=== PATIENT | female | born 1970 | race Caucasian/White ===

== ENCOUNTER 2021-05-02 11:54 | Inpatient (IN) | payer OTHER ==
[~2021-05-02] VITALS: Ht 172.7 cm; Wt 147.2 kg
[~2021-05-02 11:54] MED LIST: AUGMENTIN250 MG PO; BACLOFEN 10MG T10 MG PO; BACTRIM DS TAB1 EACH PO; HYDROCHLOROTHIA25 M1 PO; K-DUR20 MEQ PO; METRONIDAZOLE500 MG PO; NAPROXEN500 MG PO; PRAVACHOL20 MG PO; PREDNISONE 20MG20 MG PO; PRILOSEC20 MG PO; PRINIVIL20 MG PO; SAXENDA SC; ZYRTEC10 MG PO
[2021-05-02 12:36] LABS: BASOPHIL 0.1 % (0-2); EOSINOPHIL 0 % (0-5); HCT 44.9 % (37.0-47.0); HGB 14.1 g/dl (12.5-16.0); LYMPHOCYTE 6.9 % (15-48); MCH 28.1 pg (25.0-31.0); MCHC 31.4 g/dL (32.0-36.0); MCV 89.4 fL (78.0-100.0); MONOCYTE 2.8 % (0-12); NEUTROPHIL 89.6 % (41-80); NRBC 0; PLT 140 K/uL (150-400); RBC 5.02 M/uL (4.20-5.40); RDW 13.6 % (11.5-14.0); WBC 7.9 K/uL (4.0-10.5)
[2021-05-02 13:44] LABS: PRO-BNP 320 pg/mL (<125)
[2021-05-02 13:50] LABS: IRON % SATURATION 5.2 %SAT (20-50)
[2021-05-02 13:50] LABS: ALBUMIN 2.3 g/dL (3.4-5.0); BILIRUBIN - TOTAL 0.3 mg/dL (0.2-1.0); BUN/CREAT RATIO (CALC) 18.2 RATIO; C-REACTIVE PROTEIN 12.3 mg/dL (<=0.90); CREATININE 1.32 mg/dL (0.51-0.95); GLOBULIN (CALCULATION) 3.8 g/dL; MAGNESIUM 1.9 mg/dL (1.8-2.4); POTASSIUM 3.3 mmol/L (3.5-5.1); TOTAL PROTEIN 6.1 g/dL (6.4-8.2)
[2021-05-02] MEDS ORDERED: PROTONIX 40MG T40 MG PO (21:55)
[2021-05-03 00:16] LABS: BILIRUBIN NEGATIVE (NEGATIVE); BLOOD NEGATIVE Ery/uL (NEGATIVE); CLARITY CLEAR (CLEAR); COLOR YELLOW (YELLOW); GLUCOSE (U) NORMAL (NORMAL); LEUKOCYTES NEGATIVE Leu/uL (NEGATIVE); NITRITE NEGATIVE (NEGATIVE); PROTEIN 1+ mg/dL (NEGATIVE); UROBILINOGEN 0.2 mg/dL (0.2-1.0)
[2021-05-03 00:23] LABS: BACTERIA TRACE; URINARY WBC RARE
[2021-05-03 07:00] LABS: BASOPHIL 0.2 % (0-2); EOSINOPHIL 0 % (0-5); MCH 28.3 pg (25.0-31.0); MCV 91.5 fL (78.0-100.0); MONOCYTE 5.4 % (0-12); MPV 10.1 fL (6.0-9.5); NEUTROPHIL 73.6 % (41-80); NRBC 0; PLT 122 K/uL (150-400); RBC 4.59 M/uL (4.20-5.40); RDW 13.7 % (11.5-14.0); WBC 4.4 K/uL (4.0-10.5)
[2021-05-03 07:11] LABS: LYMPHOCYTE 19.9 % (15-48)
[2021-05-03 07:48] LABS: BUN/CREAT RATIO (CALC) 25.2 RATIO; CREATININE 1.11 mg/dL (0.51-0.95); POTASSIUM 4.4 mmol/L (3.5-5.1)
--- NOTE | 2021-05-03 12:26 | NUR ---
ANESTHESIA REQUESTED PER MD FOR POTENTIAL DIFFICULT INTUBATION. ADULT PAROLE OFFICER TO FLOOR. PROPOFOL, VERSED, SUCC, ETOMIDATE PUSHED BY ADULT PAROLE OFFICER AT 1224. COMPLETED INTUBATION AT 1226. AMBU BAG USED UNTIL O2 SAT 100%. NO DISTRESS NOTED. VSS AT TIME OF INTUBATION ONCE HYPEROXYGENATED. CHEST XRAY COMPLETED. ADDITIONAL IV SITES OBTAINED. OG TUBE AND ABBOTT CATHETER PLACED AT 1255.
--- NOTE | 2021-05-04 06:32 | NUR ---
MD ORDERED CVP MONITORING FOR THIS PT. UNABLE TO PERFORM CVP DUE TO UNAVAILABILTY OF EQUIPMENT OR TRAINING TO DO SO. ER,RN
[2021-05-04 09:13] LABS: BASOPHIL 0 % (0-2); EOSINOPHIL 0 % (0-5); HCT 40.4 % (37.0-47.0); HGB 12.8 g/dl (12.5-16.0); LYMPHOCYTE 11.9 % (15-48); MCH 28.8 pg (25.0-31.0); MCHC 31.7 g/dL (32.0-36.0); MONOCYTE 6.1 % (0-12); MPV 9.4 fL (6.0-9.5); NEUTROPHIL 81.1 % (41-80); NRBC 0; PLT 163 K/uL (150-400); RBC 4.44 M/uL (4.20-5.40); RDW 13.9 % (11.5-14.0); RETICULOCYTE COUNT 0.6 % (1.0-2.0)
[2021-05-04 09:18] LABS: WBC 7.8 K/uL (4.0-10.5)
[2021-05-04 09:31] LABS: IRON % SATURATION 21.1 %SAT (20-50)
[2021-05-04 09:58] LABS: ALBUMIN 2.3 g/dL (3.4-5.0); BILIRUBIN - TOTAL 0.4 mg/dL (0.2-1.0); BUN/CREAT RATIO (CALC) 35.8 RATIO; CREATININE 0.95 mg/dL (0.51-0.95); GLOBULIN (CALCULATION) 3.9 g/dL; PHOSPHORUS 2.6 mg/dL (2.6-4.7); POTASSIUM 3.9 mmol/L (3.5-5.1); TOTAL PROTEIN 6.2 g/dL (6.4-8.2)
[2021-05-04 10:01] LABS: MAGNESIUM 2.6 mg/dL (1.8-2.4)
--- NOTE | 2021-05-05 04:37 | NUR ---
AROUND 0300 GOT A CALL FROM BRYAN AT THE [facility]. THEY FOUND A BED AT [facility] ICU BED 7. REPORT WAS CALLED AROUND 0320 TO KEON LEONE. EMS WAS CALLED AND ARRIVED AROUND 0340 TO TRANSPORT PT. ER DOC AND TELE DOC WERE BOTH ASKED BY PRIMARY RN IF PT SHOULD GO BY GROUND OR AIR AND BOTH DECIDED GROUND WOULD BE FINE. EMS HAS BEEN IN PT. FOR FOR THE LAST HOUR TRANSFERING PT. TO THEIR STRETCHER AND VENT. PT. WILL BE LEAVING FLOOR SHORTLY. LAST SET OF VITALS WAS 129/65 PER A LINE, PULSE 81, RESP 24, TEMP 96.2 AXILLARY. PT. STABLE AT THE TIME OF DEPARTURE AT 0448. KEON LINTON
[2021-05-05 05:08] LABS: BASOPHIL 0.1 % (0-2); EOSINOPHIL 0 % (0-5); HCT 38.3 % (37.0-47.0); HGB 11.8 g/dl (12.5-16.0); LYMPHOCYTE 9.1 % (15-48); MCH 28.1 pg (25.0-31.0); MCHC 30.8 g/dL (32.0-36.0); MCV 91.2 fL (78.0-100.0); MONOCYTE 5.2 % (0-12); MPV 9.3 fL (6.0-9.5); NRBC 0; PLT 206 K/uL (150-400); RDW 13.6 % (11.5-14.0); WBC 7.3 K/uL (4.0-10.5)
[2021-05-05 05:19] LABS: NEUTROPHIL 84.9 % (41-80)
[2021-05-05 05:40] LABS: BILIRUBIN - TOTAL 0.2 mg/dL (0.2-1.0); CREATININE 0.9 mg/dL (0.51-0.95); GLOBULIN (CALCULATION) 2.8 g/dL; MAGNESIUM 2.2 mg/dL (1.8-2.4); POTASSIUM 4.2 mmol/L (3.5-5.1); TOTAL PROTEIN 4.8 g/dL (6.4-8.2)
[2021-05-06 05:16] LABS: BASOPHIL 0.1 % (0-2); EOSINOPHIL 0 % (0-5); HCT 37.4 % (37.0-47.0); HGB 11.6 g/dl (12.5-16.0); LYMPHOCYTE 3.7 % (15-48); MCH 28.2 pg (25.0-31.0); MONOCYTE 4.4 % (0-12); MPV 9.4 fL (6.0-9.5); NRBC 0; PLT 207 K/uL (150-400); RBC 4.11 M/uL (4.20-5.40); RDW 13.5 % (11.5-14.0); WBC 10.5 K/uL (4.0-10.5)
[2021-05-06 05:19] LABS: NEUTROPHIL 91.3 % (41-80)
[2021-05-06 05:41] LABS: BILIRUBIN - TOTAL 0.3 mg/dL (0.2-1.0); BUN/CREAT RATIO (CALC) 30.3 RATIO; C-REACTIVE PROTEIN 1.7 mg/dL (<=0.90); CREATININE 0.89 mg/dL (0.51-0.95); GLOBULIN (CALCULATION) 2.8 g/dL; POTASSIUM 4.6 mmol/L (3.5-5.1); TOTAL PROTEIN 4.8 g/dL (6.4-8.2)
--- NOTE | 2021-05-06 20:05 | NUR ---
1020 PT SAT UP IN THE BED AND WAS PULLING AT HER ET TUBE, SAT DROPPED TO 80% CALLED OUT TO CALL DR OAKLYE AND RESP. WE STARTED TO BAG HER TO GET SATS BACK UP, WE HAD TO DO THIS ABOUT 6 TIMES. INCREASED FIO2 TO 100% ON THE VENTILATOR, INCREASED HER PEEP 20.SHE WAS STARTED HER ON A VECURONIUM GTT AT 0.8MCG/KG/MIN, WHICH HELPED HER RELAX AND WE WAS ABLE TO GET HER VENTILATOR SETTING BACK DOWN AT 1323 SETTING WERE SIMV RATE 20,TIDAL 550, FIO2 60%, PEEP12, PRESSURE SUPPORT 10
[2021-05-07 08:16] LABS: BASOPHIL 0.1 % (0-2); EOSINOPHIL 0 % (0-5); HGB 11.3 g/dl (12.5-16.0); LYMPHOCYTE 2.3 % (15-48); MCH 28.3 pg (25.0-31.0); MCHC 31.4 g/dL (32.0-36.0); MONOCYTE 3.7 % (0-12); MPV 9.5 fL (6.0-9.5); NEUTROPHIL 92.6 % (41-80); NRBC 0; PLT 204 K/uL (150-400); RDW 13.3 % (11.5-14.0)
[2021-05-07 08:17] LABS: WBC 10.3 K/uL (4.0-10.5)
[2021-05-07 08:33] LABS: ALBUMIN 1.9 g/dL (3.4-5.0); BILIRUBIN - TOTAL 0.4 mg/dL (0.2-1.0); BUN/CREAT RATIO (CALC) 37.3 RATIO; CREATININE 0.67 mg/dL (0.51-0.95); GLOBULIN (CALCULATION) 3.4 g/dL; POTASSIUM 4.8 mmol/L (3.5-5.1); TOTAL PROTEIN 5.3 g/dL (6.4-8.2)
--- NOTE | 2021-05-07 20:25 | NUR ---
05/05/21 0437 NOTE PUT IN ON WRONG PT. MRS. FLOR DID NOT GET TRANSFERRED WILL CORRECT NOTE ON PT. WHO DID GET TRANSFERRED. ER,RN
[2021-05-08 04:41] LABS: BASOPHIL 0 % (0-2); EOSINOPHIL 0 % (0-5); HCT 35.1 % (37.0-47.0); LYMPHOCYTE 2.7 % (15-48); MCH 28.5 pg (25.0-31.0); MCHC 31.3 g/dL (32.0-36.0); MCV 90.9 fL (78.0-100.0); MONOCYTE 3.8 % (0-12); MPV 10.3 fL (6.0-9.5); NEUTROPHIL 92.4 % (41-80); NRBC 0; PLT 220 K/uL (150-400); RBC 3.86 M/uL (4.20-5.40); RDW 13.7 % (11.5-14.0); WBC 8.2 K/uL (4.0-10.5)
[2021-05-08 05:02] LABS: BUN/CREAT RATIO (CALC) 42.9 RATIO; CREATININE 0.63 mg/dL (0.51-0.95); POTASSIUM 5.5 mmol/L (3.5-5.1)
[2021-05-09 05:23] LABS: BASOPHIL 0 % (0-2); EOSINOPHIL 0.1 % (0-5); HCT 35.2 % (37.0-47.0); LYMPHOCYTE 2.3 % (15-48); MCH 28.4 pg (25.0-31.0); MCHC 31.3 g/dL (32.0-36.0); MONOCYTE 3.6 % (0-12); MPV 10.1 fL (6.0-9.5); NRBC 0.3; PLT 290 K/uL (150-400); RBC 3.87 M/uL (4.20-5.40); RDW 13.7 % (11.5-14.0); WBC 7.5 K/uL (4.0-10.5)
[2021-05-09 05:24] LABS: NEUTROPHIL 92.8 % (41-80)
[2021-05-09 05:38] LABS: BUN/CREAT RATIO (CALC) 46.4 RATIO; CREATININE 0.69 mg/dL (0.51-0.95); POTASSIUM 5.7 mmol/L (3.5-5.1)
--- NOTE | 2021-05-09 10:53 | NUR ---
PT STATUS UPDATE- PT INTUBATED & SEDATED. PT LOCALIZES NOXIOUS STIMULI. PT IN RESTRAINTS, NEW ORDER PLACED @ 0830. PT VS 107/53 (71), HR 46 SINUS HUNTER, RR 20, O2 100%, ABP 126/64 (84). PT ON [id number] & BILAT EXTREMITIES ELEVATED.
--- NOTE | 2021-05-09 13:38 | NUR ---
VENTILATOR SETTINGS CHANGED AC/PC RATE 20, FIO2 75%,PEEP 12, PRESSURE SUPPORT 28. BY RT YI
--- NOTE | 2021-05-09 13:53 | NUR ---
Nutrition Follow UP: Pt continues sedated/intubated with continuous TF of Jevity 1.2. Rate per documentation is 60ml/hr, providing 1728 kcal, 79 g protein and 1162 ml H2O from formula. Additional protein and kcal provided from proteinex supplement as well. No new n/v/d/c indicated, no new wounds of concern. 1+ and 2+ edema to BLE and BUE per documentation. BS are present, abd is distended. Medications and lab results reviewed 05/09/21. Recommendation: Reduce TF rate to goal of 45ml/hr and continue proteinex ONS. Continue FW flushes per MD discretion. ~Eula Garcia, MS, RDN, LD
[2021-05-09 14:37] LABS: BUN/CREAT RATIO (CALC) 45.5 RATIO; CREATININE 0.77 mg/dL (0.51-0.95)
[2021-05-10 05:32] LABS: BASOPHIL 0.1 % (0-2); EOSINOPHIL 0.2 % (0-5); HCT 35.9 % (37.0-47.0); HGB 11.2 g/dl (12.5-16.0); LYMPHOCYTE 2.1 % (15-48); MCH 28.5 pg (25.0-31.0); MCHC 31.2 g/dL (32.0-36.0); MCV 91.3 fL (78.0-100.0); MONOCYTE 3.7 % (0-12); MPV 10.4 fL (6.0-9.5); NRBC 0; PLT 344 K/uL (150-400); RBC 3.93 M/uL (4.20-5.40); RDW 13.8 % (11.5-14.0); WBC 8.9 K/uL (4.0-10.5)
[2021-05-10 05:35] LABS: NEUTROPHIL 92.9 % (41-80)
[2021-05-10 05:44] LABS: BILIRUBIN - TOTAL 0.3 mg/dL (0.2-1.0); BUN/CREAT RATIO (CALC) 58.1 RATIO; CREATININE 0.62 mg/dL (0.51-0.95); GLOBULIN (CALCULATION) 2.9 g/dL; POTASSIUM 5.3 mmol/L (3.5-5.1); TOTAL PROTEIN 4.9 g/dL (6.4-8.2)
[2021-05-10 15:23] LABS: BUN/CREAT RATIO (CALC) 58.5 RATIO; CREATININE 0.65 mg/dL (0.51-0.95); POTASSIUM 4.6 mmol/L (3.5-5.1)
--- NOTE | 2021-05-10 16:21 | NUR ---
SEDATION VACATION STARTED ON PT PER MD ORDER. INITIAL ASSESSMENT WITH FENTANYL 25 ML/HR, VERSED 10 ML/HR 1100- FENTANYL DECREASED TO 20 ML/HR VERSED DECREASED TO 8 ML/HR PT DID NOT FOLLOW COMMANDS 1130- FENTANYL DECREASED TO 17.5 ML/HR VERSED DECREASED TO 7 ML/HR PT DID NOT FOLLOW COMMANDS 1300- FENTANYL DECREASED TO 15 ML/HR VERSED DECREASED TO 6 ML/HR PT WILL OPEN EYES TO NOXIOUS STIMULI AND VOICE, WILL NOT PHYSICAL LABORATORY ASSISTANT HANDS.
[2021-05-11 04:32] LABS: BASOPHIL 0.1 % (0-2); EOSINOPHIL 0.1 % (0-5); HCT 35.7 % (37.0-47.0); HGB 11.2 g/dl (12.5-16.0); LYMPHOCYTE 1.8 % (15-48); MCH 28.3 pg (25.0-31.0); MCHC 31.4 g/dL (32.0-36.0); MCV 90.2 fL (78.0-100.0); MONOCYTE 4.7 % (0-12); MPV 10.4 fL (6.0-9.5); NRBC 0; PLT 360 K/uL (150-400); RBC 3.96 M/uL (4.20-5.40); RDW 13.9 % (11.5-14.0); WBC 10.1 K/uL (4.0-10.5)
[2021-05-11 04:33] LABS: NEUTROPHIL 92.3 % (41-80)
[2021-05-11 05:03] LABS: ALBUMIN 1.9 g/dL (3.4-5.0); BILIRUBIN - TOTAL 0.4 mg/dL (0.2-1.0); BUN/CREAT RATIO (CALC) 61.5 RATIO; CREATININE 0.65 mg/dL (0.51-0.95); GLOBULIN (CALCULATION) 3.5 g/dL; POTASSIUM 4.9 mmol/L (3.5-5.1); TOTAL PROTEIN 5.4 g/dL (6.4-8.2)
--- NOTE | 2021-05-11 18:41 | NUR ---
PT WENT ON SEDATION VACATION AT 1200 FENTANYL AND VERSED STOPPED PT WAS ABLE TO FOLLOW COMMANDS BY SQUEEZING HANDS, WIGGLING TOES, AND HAD EYES OPENED. 1212 PT SEDATION WAS RESTARTED VERSED AT 6MG AND FENTANYL AT 150MCG PT WAS HYPERTENSIVE 170-180 SYSTOLIC AND TACHYCARDIC 100-120. 1220 VERSED INCREASED 8MG AND FENTYNAL INCREASED 200MCG PT WAS STILL ALERT, HYPERTENSIVE AND TACHYCARDIC ALSO BEGINNING TO FIGHT AGAINST THE RESTRAINTS VERSED INCREASED TO 10MG AND FENTANYL INCREASED TO 250MCG AT 1242 DR GOULD WAS NOTIFIED STATED HE DID NOT WANT ANY NEW ORDERS AT THIS TIME 1300 PT WAS NORMOTENSIVE AND WITHIN NORMAL LITIMS WITH HER HEART RATE SO VERSED AWAS DECREASED DOWN TO 8MG AND FENTANYL DECREASED DOWN TO 150MCG 1400 FENTANYL INCREASED TO 200MCG 1430 FENTANYL INCREASED TO 250MCG PT APPEARS COMFORTABLE WITH STABLE VITALS
[2021-05-12 03:24] LABS: BASOPHIL 0 % (0-2); EOSINOPHIL 0.1 % (0-5); HCT 34.6 % (37.0-47.0); LYMPHOCYTE 2.4 % (15-48); MCH 28.5 pg (25.0-31.0); MCHC 31.8 g/dL (32.0-36.0); MCV 89.6 fL (78.0-100.0); MONOCYTE 4.2 % (0-12); MPV 10.4 fL (6.0-9.5); NEUTROPHIL 92.4 % (41-80); NRBC 0; PLT 350 K/uL (150-400); RBC 3.86 M/uL (4.20-5.40); RDW 13.9 % (11.5-14.0); WBC 9.3 K/uL (4.0-10.5)
[2021-05-12 03:43] LABS: ALBUMIN 1.9 g/dL (3.4-5.0); BILIRUBIN - TOTAL 0.4 mg/dL (0.2-1.0); BUN/CREAT RATIO (CALC) 66.1 RATIO; CREATININE 0.62 mg/dL (0.51-0.95); GLOBULIN (CALCULATION) 3.3 g/dL; MAGNESIUM 2.3 mg/dL (1.8-2.4); POTASSIUM 4.8 mmol/L (3.5-5.1); TOTAL PROTEIN 5.2 g/dL (6.4-8.2)
--- NOTE | 2021-05-12 12:42 | NUR ---
PT BP 180/108 HR 142, MD AWARE AND ORDERED 10 MG LISINOPRIL.
--- NOTE | 2021-05-12 12:43 | NUR ---
PT CALLED TO LOCATE PT BELONGINGS TOPICK UP. THIS RN FOUND A CROSS NECKLACE, TWO RINGS, A CCELL PHONE, GLASSES AND IMPREGNATOR AND DRIER HELPER ALONG WITH ID AND INSURANCE CARD, PLACE IN PERSONAL BELONGINGS BAG AND LABELED WITH NAME. NOTIFIED .
--- NOTE | 2021-05-12 13:00 | NUR ---
NOTIFIED OF HR 145 AND BP 169/97, ORDERED HYDRALAZINE 10 MG IVP
--- NOTE | 2021-05-12 18:16 | NUR ---
PT WAS HYPERTENSIVE BEGINNING AT 1200 SUSTATINING IN THE 180/190 SYSTOLIC PT WAS GIVEN 10 OF APRESOLINE AND 10 OF LISINOPRIL SEE EMAR FOR EXACT TIMES PT VERSED INCREASED TO 10MG AND FENTANYL INCREASED TO 300MCG PT STAYED HYPERTENSIVE UNTIL 1430 AND PT BLOOD PRESSURE SLOWLY DECLINED 1601 VERSED DECREASED TO 8MG 1643 FENTATNYL DEECREASED TO 250MCG PT BLOOD PRESSURE KEPT SLOWLY DECLINING BUT MAP WAS MAINTING GREATER THAN 65 1730 PT BLOOD PRESURE WAS 90/50 TO 80/40 1740 VERSED DECREASED TO 6MG AND FENTANYL WAS DECREASED TO 150MCG BP REMIANED THE SAME EVEN AFTER ZEROING AND FLUSHING THE A LINE NBP WAS SIMILAR TO URIEL READING DRIPS WERE STOPPED AND DR GOULD WAS NOTIFED LUIS FERNANDO CAME AND ASSESSED PATIENTS STATED THAT NEITH THE VERSED OR FENTANYL WOULD AFFECT THE BLOOD PRESSURE ONE MORE THAN THE OTHER 1814 VERSED WAS STARTED BACK AT 6MG FENTANYL WAS RESTARTED BACK AT 50MCG AND A 250 ML BOLUS OF LR WAS ORDERED 1826 PT VITALS ARE STABLIZING, PT APPEARS COMFORTBALE, WILL CONTINUE TO MONITOR
[2021-05-13 03:37] LABS: BASOPHIL 0.1 % (0-2); HCT 33.6 % (37.0-47.0); HGB 10.4 g/dl (12.5-16.0); LYMPHOCYTE 4.8 % (15-48); MCH 28.4 pg (25.0-31.0); MCV 91.8 fL (78.0-100.0); MONOCYTE 2.5 % (0-12); MPV 10.1 fL (6.0-9.5); NEUTROPHIL 90.8 % (41-80); NRBC 0; PLT 288 K/uL (150-400); RBC 3.66 M/uL (4.20-5.40); RDW 14.4 % (11.5-14.0); WBC 10.4 K/uL (4.0-10.5)
[2021-05-13 03:58] LABS: ALBUMIN 2.2 g/dL (3.4-5.0); BILIRUBIN - TOTAL 0.6 mg/dL (0.2-1.0); BUN/CREAT RATIO (CALC) 55.4 RATIO; CREATININE 0.65 mg/dL (0.51-0.95); MAGNESIUM 2.1 mg/dL (1.8-2.4); PHOSPHORUS 2.2 mg/dL (2.6-4.7); POTASSIUM 4.1 mmol/L (3.5-5.1); TOTAL PROTEIN 5.2 g/dL (6.4-8.2)
[2021-05-13 08:55] LABS: LACTIC ACID 1.4 mmol/L (0.4-1.9)
[2021-05-13 13:42] LABS: BILIRUBIN NEGATIVE (NEGATIVE); BLOOD TRACE-INTACT Ery/uL (NEGATIVE); CLARITY CLEAR (CLEAR); COLOR YELLOW (YELLOW); GLUCOSE (U) NORMAL (NORMAL); LEUKOCYTES NEGATIVE Leu/uL (NEGATIVE); NITRITE NEGATIVE (NEGATIVE); PROTEIN NEGATIVE (NEGATIVE); SPECIFIC GRAVITY 1.015 (1.001-1.030)
[2021-05-13 13:53] LABS: BACTERIA TRACE
[2021-05-14 04:16] LABS: BASOPHIL 0 % (0-2); EOSINOPHIL 1.3 % (0-5); HCT 31.6 % (37.0-47.0); HGB 9.5 g/dl (12.5-16.0); LYMPHOCYTE 3.8 % (15-48); MCH 27.9 pg (25.0-31.0); MCHC 30.1 g/dL (32.0-36.0); MCV 92.9 fL (78.0-100.0); MONOCYTE 2.6 % (0-12); MPV 10.4 fL (6.0-9.5); NEUTROPHIL 91.5 % (41-80); NRBC 0; PLT 269 K/uL (150-400); RDW 14.8 % (11.5-14.0)
[2021-05-14 04:20] LABS: WBC 11.4 K/uL (4.0-10.5)
[2021-05-14 04:35] LABS: ALBUMIN 1.7 g/dL (3.4-5.0); BILIRUBIN - TOTAL 0.6 mg/dL (0.2-1.0); BUN/CREAT RATIO (CALC) 42.6 RATIO; CREATININE 0.61 mg/dL (0.51-0.95); GLOBULIN (CALCULATION) 3.1 g/dL; MAGNESIUM 2.2 mg/dL (1.8-2.4); PHOSPHORUS 2.1 mg/dL (2.6-4.7); POTASSIUM 4.4 mmol/L (3.5-5.1); TOTAL PROTEIN 4.8 g/dL (6.4-8.2)
[2021-05-14 15:40] LABS: RETICULOCYTE COUNT 1.7 % (1.0-2.0)
[2021-05-14 16:20] LABS: FOLIC ACID (SERUM) 5.4 ng/mL (8.6-58.9)
[2021-05-15 04:52] LABS: BASOPHIL 0 % (0-2); EOSINOPHIL 0 % (0-5); HCT 30.9 % (37.0-47.0); HGB 9.4 g/dl (12.5-16.0); LYMPHOCYTE 1.3 % (15-48); MCH 28.7 pg (25.0-31.0); MCHC 30.4 g/dL (32.0-36.0); MCV 94.5 fL (78.0-100.0); MONOCYTE 0.6 % (0-12); MPV 10.8 fL (6.0-9.5); NRBC 0; PLT 211 K/uL (150-400); RBC 3.27 M/uL (4.20-5.40); RDW 14.6 % (11.5-14.0); WBC 8.7 K/uL (4.0-10.5)
[2021-05-15 04:54] LABS: NEUTROPHIL 97.6 % (41-80)
[2021-05-15 06:35] LABS: ALBUMIN 1.6 g/dL (3.4-5.0); BILIRUBIN - TOTAL 0.3 mg/dL (0.2-1.0); BUN/CREAT RATIO (CALC) 38.5 RATIO; CREATININE 0.52 mg/dL (0.51-0.95); GLOBULIN (CALCULATION) 3.8 g/dL; MAGNESIUM 2.3 mg/dL (1.8-2.4); PHOSPHORUS 3.6 mg/dL (2.6-4.7); POTASSIUM 5.4 mmol/L (3.5-5.1); TOTAL PROTEIN 5.4 g/dL (6.4-8.2)
--- NOTE | 2021-05-15 18:23 | NUR ---
1300 PT PRONED, RT AT THE HEAD,WITH 6 STAFF MEMBERS TO TURN, PT TOLERATED WELL
[2021-05-16 03:45] LABS: BASOPHIL 0.1 % (0-2); EOSINOPHIL 0 % (0-5); HCT 37.2 % (37.0-47.0); HGB 11.5 g/dl (12.5-16.0); LYMPHOCYTE 1.5 % (15-48); MCH 28.9 pg (25.0-31.0); MCHC 30.9 g/dL (32.0-36.0); MCV 93.5 fL (78.0-100.0); MONOCYTE 2.5 % (0-12); MPV 10.4 fL (6.0-9.5); NRBC 0; PLT 382 K/uL (150-400); RBC 3.98 M/uL (4.20-5.40); RDW 14.6 % (11.5-14.0)
[2021-05-16 03:46] LABS: NEUTROPHIL 95.2 % (41-80)
[2021-05-16 04:12] LABS: BUN/CREAT RATIO (CALC) 47.3 RATIO; CREATININE 0.55 mg/dL (0.51-0.95); MAGNESIUM 2.3 mg/dL (1.8-2.4); PHOSPHORUS 3.9 mg/dL (2.6-4.7); POTASSIUM 5.1 mmol/L (3.5-5.1)
--- NOTE | 2021-05-16 06:06 | NUR ---
0500 6 NURSING STAFF, RT AND HIGH SCHOOL TUTOR AT BEDSIDE. SUPINATION CHECKLIST READ ALOUD. LINES/TUBES SECURED. DRESSING TO COCCYX APPLIED, CHUCKS AND DRAWSHEET PLACED. TUBE FEEDS HELD. SUPINATION PROTOCOL FOLLOWED. PT TOLERATED WELL. BP-199/119 HR-119 O2-95%, R-28. LINES/TUBES REMAINED SECURED/INTACT. ORAL AND NASAL DRAINAGE NOTED, SUCTIONED WITH ORAL CARE. ETT REMAINED SECURED 25@LIP. FOAM DRESSING REMOVED, SKIN INTACT NO OPEN AREAS NOTED TO PRESSURE POINTS AND BILAT EXT. SMALL PIN SIZED OPEN AREA NOTED TO RT SIDE CORNER OF MOUTH, OPEN BLEEDING AREAS TO INNER MOUTH AND TONGUE. FACIAL, ORBITAL, SCLERA EDEMA, EDEMA NOTED TO LIPS. PERRLA INTACT. PUPILS EQUAL AND REACTIVE
--- NOTE | 2021-05-16 09:48 | NUR ---
Pt continues NPO, intubated and sedated att. Current rate of Jevity 1.2 is 30ml/hr which provides 864 kcal, 39g protein, and 581 ml H2O with additional 600ml with FW flushes. Current rate meets ~67% of daily kcal needs, 28% of protein needs. Recommendation, increase TF rate to meet at least 75% of daily needs, as tolerated/appropriate. Add proteinex supplement BID. Chart reviewed, meds and labs reviewed. 1+ edema to BLE's noted, LBM 05/16. ~Eula Garcia, MS, RDN, LD
[2021-05-17 03:53] LABS: BASOPHIL 0 % (0-2); EOSINOPHIL 0 % (0-5); HCT 36.9 % (37.0-47.0); HGB 11.1 g/dl (12.5-16.0); LYMPHOCYTE 2.4 % (15-48); MCH 28.5 pg (25.0-31.0); MCHC 30.1 g/dL (32.0-36.0); MCV 94.9 fL (78.0-100.0); MONOCYTE 3.7 % (0-12); MPV 10.1 fL (6.0-9.5); NRBC 0; PLT 265 K/uL (150-400); RBC 3.89 M/uL (4.20-5.40); RDW 15.2 % (11.5-14.0)
[2021-05-17 03:54] LABS: WBC 11.5 K/uL (4.0-10.5)
[2021-05-17 04:28] LABS: ALBUMIN 1.9 g/dL (3.4-5.0); BILIRUBIN - TOTAL 0.2 mg/dL (0.2-1.0); BUN/CREAT RATIO (CALC) 66.7 RATIO; C-REACTIVE PROTEIN 4.7 mg/dL (<=0.90); CREATININE 0.51 mg/dL (0.51-0.95); GLOBULIN (CALCULATION) 4.1 g/dL; MAGNESIUM 2.5 mg/dL (1.8-2.4); PHOSPHORUS 3.1 mg/dL (2.6-4.7); POTASSIUM 4.8 mmol/L (3.5-5.1)
[2021-05-18 04:21] LABS: BASOPHIL 0.1 % (0-2); EOSINOPHIL 0.1 % (0-5); HCT 36.3 % (37.0-47.0); HGB 11.1 g/dl (12.5-16.0); LYMPHOCYTE 2.9 % (15-48); MCH 28.3 pg (25.0-31.0); MCHC 30.6 g/dL (32.0-36.0); MCV 92.6 fL (78.0-100.0); MONOCYTE 4.7 % (0-12); MPV 10.4 fL (6.0-9.5); NRBC 0; PLT 293 K/uL (150-400); RBC 3.92 M/uL (4.20-5.40); RDW 14.9 % (11.5-14.0); WBC 13.9 K/uL (4.0-10.5)
[2021-05-18 04:38] LABS: BUN/CREAT RATIO (CALC) 72.5 RATIO; CREATININE 0.51 mg/dL (0.51-0.95); MAGNESIUM 2.4 mg/dL (1.8-2.4); PHOSPHORUS 2.2 mg/dL (2.6-4.7); POTASSIUM 4.5 mmol/L (3.5-5.1)
[2021-05-18 04:47] LABS: NEUTROPHIL 91.6 % (41-80)
--- NOTE | 2021-05-18 18:00 | NUR ---
PATIENT PRONED AT 1800 WITH 4 RN'S, RT AND MD AT BEDSIDE. PRIOR TO PRONING SEDATION TITRATED UP TO A BIS OF 53, PARALYTIC ADDED AND TITRATED FOR 1/4 TOF. HYPERTENSION POST PRONING, MD AWARE, DOES NOT WANT IV LOPRESSOR AT THIS TIME, CONTINUE TO MONITOR. NEW ABRASION NOTED TO LEFT UPPER EYE AND RIGHT THIGH (FROM STAT LOCK REMOVAL).
[2021-05-19 10:01] LABS: BASOPHIL 0.1 % (0-2); EOSINOPHIL 0.3 % (0-5); HCT 35.2 % (37.0-47.0); HGB 10.6 g/dl (12.5-16.0); LYMPHOCYTE 7.1 % (15-48); MCH 28.3 pg (25.0-31.0); MCHC 30.1 g/dL (32.0-36.0); MCV 93.9 fL (78.0-100.0); MONOCYTE 5.7 % (0-12); MPV 10.2 fL (6.0-9.5); NEUTROPHIL 86.1 % (41-80); NRBC 0; PLT 165 K/uL (150-400); RBC 3.75 M/uL (4.20-5.40); RDW 14.8 % (11.5-14.0); WBC 8.7 K/uL (4.0-10.5)
[2021-05-19 10:29] LABS: ALBUMIN 2.1 g/dL (3.4-5.0); BILIRUBIN - TOTAL 0.5 mg/dL (0.2-1.0); BUN/CREAT RATIO (CALC) 73.9 RATIO; CREATININE 0.46 mg/dL (0.51-0.95); MAGNESIUM 2.3 mg/dL (1.8-2.4); POTASSIUM 4.6 mmol/L (3.5-5.1); TOTAL PROTEIN 5.1 g/dL (6.4-8.2)
--- NOTE | 2021-05-19 19:10 | NUR ---
SPOKE WITH NEELA ABOUT POSITIVEW BLOOD CULTURES WITH KLEPSIELLA. DR OAKLEY NOTIFIED. PATIENT IS ON MERROPENUM
--- NOTE | 2021-05-19 19:16 | NUR ---
DRIPS HAVE BEEN TITRATED THROUGHOUT DAY FOR SEDATION. STARTED ON DIPRIVAN, STOPPED PRECIDEX AND VEC.
--- NOTE | 2021-05-20 01:45 | NUR ---
RT CAME UP FOR ROUNDS AND PATIENT HAS HAD A CHANGE IN STATUS. HR IS TACHY IN THE 120s, PATIENTS BLOOD PRESSURE HAS BEEN HIGH AND PEAK PRESSURES HAVE INCREASED ON THE VENT INTO THE 50s WHICH IS NEW FOR HER ALONG WITH AN INCREASED RR IN THE UPPER 30s. SPOKE WITH MELANIE RENNER. PATIENT SWITCHED TO PC, IP 30. FIO2 WAS INCREASED BY RN TO 100% DUE TO PATIENT DESAT. CURRENTLY 100%, PEEP OF 10 AND SAT 91% EXVT AROUND 370s WITH SWITCH TO PC. AWAITING XRAY TO COME UP
[2021-05-20 04:10] LABS: BASOPHIL 0.1 % (0-2); EOSINOPHIL 0.4 % (0-5); HCT 29.4 % (37.0-47.0); HGB 8.9 g/dl (12.5-16.0); LYMPHOCYTE 5.7 % (15-48); MCH 28.4 pg (25.0-31.0); MCHC 30.3 g/dL (32.0-36.0); MCV 93.9 fL (78.0-100.0); MONOCYTE 5.1 % (0-12); NEUTROPHIL 87.7 % (41-80); NRBC 0; PLT 177 K/uL (150-400); RBC 3.13 M/uL (4.20-5.40); WBC 9.2 K/uL (4.0-10.5)
[2021-05-20 04:27] LABS: BUN/CREAT RATIO (CALC) 77.3 RATIO; C-REACTIVE PROTEIN 0.8 mg/dL (<=0.90); CREATININE 0.44 mg/dL (0.51-0.95); MAGNESIUM 2.3 mg/dL (1.8-2.4); PHOSPHORUS 2.3 mg/dL (2.6-4.7); POTASSIUM 4.4 mmol/L (3.5-5.1)
--- NOTE | 2021-05-20 12:44 | NUR ---
RD delivered Proteinex 18 to unit; identified protein amt to be different from previous order and approp. substitute. KEON Temple verbalized understanding of product differences.
--- NOTE | 2021-05-20 13:33 | NUR ---
05/20/21 Patient is on waiting list at [facility] per Dr. Schultz.
--- NOTE | 2021-05-20 20:37 | NUR ---
discussed new EN recommendations with MD Schultz d/t high lipid kcals infusing for sedation. Approval for rate decrease- communicated information to KEON Boyd; assessment f/u in [facility] for review.
[2021-05-21 04:44] LABS: BASOPHIL 0 % (0-2); EOSINOPHIL 0.2 % (0-5); HCT 27.3 % (37.0-47.0); LYMPHOCYTE 4.7 % (15-48); MCH 28.1 pg (25.0-31.0); MCHC 29.3 g/dL (32.0-36.0); MCV 95.8 fL (78.0-100.0); MONOCYTE 4.5 % (0-12); MPV 10.1 fL (6.0-9.5); NEUTROPHIL 89.4 % (41-80); NRBC 0.3; PLT 129 K/uL (150-400); RBC 2.85 M/uL (4.20-5.40); RDW 15.6 % (11.5-14.0); WBC 5.7 K/uL (4.0-10.5)
[2021-05-21 05:03] LABS: ALBUMIN 1.8 g/dL (3.4-5.0); BILIRUBIN - TOTAL 0.3 mg/dL (0.2-1.0); BUN/CREAT RATIO (CALC) 59.2 RATIO; CREATININE 0.49 mg/dL (0.51-0.95); GLOBULIN (CALCULATION) 2.7 g/dL; MAGNESIUM 2.3 mg/dL (1.8-2.4); PHOSPHORUS 2.7 mg/dL (2.6-4.7); POTASSIUM 4.6 mmol/L (3.5-5.1); TOTAL PROTEIN 4.5 g/dL (6.4-8.2)
[2021-05-21 10:16] LABS: LACTIC ACID 1.5 mmol/L (0.4-1.9)
[2021-05-22 05:41] LABS: BASOPHIL 0 % (0-2); EOSINOPHIL 3.3 % (0-5); HGB 8.4 g/dl (12.5-16.0); LYMPHOCYTE 14.6 % (15-48); MCH 28.7 pg (25.0-31.0); MONOCYTE 3.4 % (0-12); MPV 10.2 fL (6.0-9.5); NRBC 0.9; PLT 130 K/uL (150-400); RBC 2.93 M/uL (4.20-5.40); RDW 16.2 % (11.5-14.0)
[2021-05-22 06:01] LABS: ALBUMIN 2.1 g/dL (3.4-5.0); BILIRUBIN - TOTAL 0.3 mg/dL (0.2-1.0); BUN/CREAT RATIO (CALC) 57.8 RATIO; C-REACTIVE PROTEIN 0.6 mg/dL (<=0.90); CREATININE 0.45 mg/dL (0.51-0.95); GLOBULIN (CALCULATION) 2.5 g/dL; MAGNESIUM 2.4 mg/dL (1.8-2.4); PHOSPHORUS 2.7 mg/dL (2.6-4.7); POTASSIUM 4.2 mmol/L (3.5-5.1); TOTAL PROTEIN 4.6 g/dL (6.4-8.2)
[2021-05-22 14:28] LABS: BUN/CREAT RATIO (CALC) 62.5 RATIO; CREATININE 0.4 mg/dL (0.51-0.95); POTASSIUM 4.1 mmol/L (3.5-5.1)
--- NOTE | 2021-05-22 16:53 | NUR ---
1550 SATS DROPPED TO 81%, NOTIFIED LUIS FERNANDO AND RESP KD, KD BAGGED HER TO GET SATS BACK UP TO 92, INCREASED FIO2 90 THEN TO 100%. INCREASED PEEP 20.SATS STILL ONLY HANGING AROUND MID 80s STOPPED SEDATION TO SEE IF THAT WOULD HELP FOR ABOUT 35 MIN, SLOWLY TURNED ON VERSED , FENTANYL, DIPROVAN, BP 183/81 SO DECARESED LEVOPHED DOWN TI 1MCG/3.8ML/HR ORDERS: LASIX 60MG IV AND CHEST XRAY
[2021-05-23 04:22] LABS: BASOPHIL 0.1 % (0-2); EOSINOPHIL 3.2 % (0-5); HCT 30.7 % (37.0-47.0); HGB 8.7 g/dl (12.5-16.0); LYMPHOCYTE 4.5 % (15-48); MCH 28.7 pg (25.0-31.0); MCHC 28.3 g/dL (32.0-36.0); MCV 101.3 fL (78.0-100.0); MONOCYTE 1.7 % (0-12); MPV 10.1 fL (6.0-9.5); NEUTROPHIL 89.6 % (41-80); NRBC 0.8; PLT 126 K/uL (150-400); RBC 3.03 M/uL (4.20-5.40); RDW 16.3 % (11.5-14.0); WBC 13.7 K/uL (4.0-10.5)
[2021-05-23 04:42] LABS: ALBUMIN 1.8 g/dL (3.4-5.0); BILIRUBIN - TOTAL 0.5 mg/dL (0.2-1.0); BUN/CREAT RATIO (CALC) 47.7 RATIO; CREATININE 0.44 mg/dL (0.51-0.95); GLOBULIN (CALCULATION) 3.3 g/dL; TOTAL PROTEIN 5.1 g/dL (6.4-8.2)
[2021-05-23 09:15] LABS: BUN/CREAT RATIO (CALC) 43.9 RATIO; CREATININE 0.41 mg/dL (0.51-0.95); POTASSIUM 3.9 mmol/L (3.5-5.1)
[2021-05-23 16:38] LABS: BUN/CREAT RATIO (CALC) 33.3 RATIO; CREATININE 0.42 mg/dL (0.51-0.95); POTASSIUM 3.5 mmol/L (3.5-5.1)
[2021-05-24 00:57] LABS: CREATININE 0.4 mg/dL (0.51-0.95); POTASSIUM 3.5 mmol/L (3.5-5.1)
[2021-05-24 05:24] LABS: BASOPHIL 0.1 % (0-2); EOSINOPHIL 3.4 % (0-5); HCT 26.5 % (37.0-47.0); HGB 7.7 g/dl (12.5-16.0); LYMPHOCYTE 5.8 % (15-48); MCH 28.8 pg (25.0-31.0); MCHC 29.1 g/dL (32.0-36.0); MCV 99.3 fL (78.0-100.0); MONOCYTE 2.5 % (0-12); MPV 10.3 fL (6.0-9.5); NEUTROPHIL 87.4 % (41-80); NRBC 0.4; PLT 105 K/uL (150-400); RBC 2.67 M/uL (4.20-5.40); WBC 7.9 K/uL (4.0-10.5)
[2021-05-24 05:58] LABS: ALBUMIN 1.4 g/dL (3.4-5.0); ALKALINE PHOSHATASE 69 U/L (46-116); ALT 40 U/L (14-59); AST 25 U/L (15-37); BILIRUBIN - TOTAL 0.4 mg/dL (0.2-1.0); BUN 11 mg/dL (7-18); BUN/CREAT RATIO (CALC) 28.9 RATIO; CHLORIDE 111 mmol/L (98-107); CO2 (BICARBONATE) 36 mmol/L (21-32); CREATININE 0.38 mg/dL (0.51-0.95); GLOBULIN (CALCULATION) 3.4 g/dL; GLUCOSE 133 mg/dL (74-106); POTASSIUM 3.6 mmol/L (3.5-5.1); TOTAL PROTEIN 4.8 g/dL (6.4-8.2)
[2021-05-24 05:59] LABS: C-REACTIVE PROTEIN < 0.20 mg/dL (<=0.90)
[2021-05-24 11:24] LABS: BUN/CREAT RATIO (CALC) 26.8 RATIO; CREATININE 0.41 mg/dL (0.51-0.95); POTASSIUM 3.2 mmol/L (3.5-5.1)
[2021-05-24 18:10] LABS: BUN/CREAT RATIO (CALC) 25.6 RATIO; CREATININE 0.43 mg/dL (0.51-0.95); POTASSIUM 3.6 mmol/L (3.5-5.1)
[2021-05-24 18:57] LABS: BASOPHIL 0 % (0-2); EOSINOPHIL 2.7 % (0-5); HGB 8.2 g/dl (12.5-16.0); LYMPHOCYTE 5.3 % (15-48); MCH 29.3 pg (25.0-31.0); MCHC 29.3 g/dL (32.0-36.0); MONOCYTE 2.8 % (0-12); MPV 10.5 fL (6.0-9.5); NEUTROPHIL 88.2 % (41-80); NRBC 0.5; PLT 100 K/uL (150-400); WBC 8.1 K/uL (4.0-10.5)
--- NOTE | 2021-05-24 19:56 | NUR ---
RN AT BEDSIDE, OTHER RN HOOKING UP CVP TO DISTAL LUMEN ON CENTRAL LINE, PT HR 140's, AFIB NOTED ON THE MONITOR, RT CALLED FOR EKG, AFIB WITH RVR CONFIRMED, MD NOTIFIED.
[2021-05-25 00:31] LABS: CREATININE 0.41 mg/dL (0.51-0.95); POTASSIUM 3.9 mmol/L (3.5-5.1)
[2021-05-25 04:49] LABS: BASOPHIL 0.1 % (0-2); EOSINOPHIL 3.1 % (0-5); HCT 27.8 % (37.0-47.0); LYMPHOCYTE 6.8 % (15-48); MCH 28.9 pg (25.0-31.0); MCHC 28.8 g/dL (32.0-36.0); MCV 100.4 fL (78.0-100.0); MONOCYTE 3.7 % (0-12); NEUTROPHIL 85.3 % (41-80); NRBC 0.4; PLT 118 K/uL (150-400); RBC 2.77 M/uL (4.20-5.40); WBC 9.4 K/uL (4.0-10.5)
[2021-05-25 04:56] LABS: INR 1.18 (0.9-1.2); PROTHROMBIN TIME 14.4 SECONDS (11.8-13.4)
[2021-05-25 05:02] LABS: ALBUMIN 1.5 g/dL (3.4-5.0); BILIRUBIN - TOTAL 0.4 mg/dL (0.2-1.0); CREATININE 0.44 mg/dL (0.51-0.95); GLOBULIN (CALCULATION) 3.9 g/dL; MAGNESIUM 2.5 mg/dL (1.8-2.4); PHOSPHORUS 3.2 mg/dL (2.6-4.7); POTASSIUM 4.1 mmol/L (3.5-5.1); PTT 79.5 SECONDS (24.4-34.7); TOTAL PROTEIN 5.4 g/dL (6.4-8.2)
[2021-05-25 12:34] LABS: BUN/CREAT RATIO (CALC) 24.4 RATIO; CREATININE 0.45 mg/dL (0.51-0.95); POTASSIUM 3.6 mmol/L (3.5-5.1)
[2021-05-25 18:58] LABS: BASOPHIL 0.1 % (0-2); EOSINOPHIL 1.2 % (0-5); HCT 24.7 % (37.0-47.0); HGB 7.1 g/dl (12.5-16.0); LYMPHOCYTE 5.3 % (15-48); MCH 28.6 pg (25.0-31.0); MCHC 28.7 g/dL (32.0-36.0); MCV 99.6 fL (78.0-100.0); MONOCYTE 5.3 % (0-12); MPV 10.8 fL (6.0-9.5); NEUTROPHIL 86.9 % (41-80); NRBC 1.1; PLT 105 K/uL (150-400); RBC 2.48 M/uL (4.20-5.40); RDW 16.1 % (11.5-14.0); WBC 7.6 K/uL (4.0-10.5)
[2021-05-25 19:15] LABS: BUN/CREAT RATIO (CALC) 23.9 RATIO; CREATININE 0.46 mg/dL (0.51-0.95); POTASSIUM 3.4 mmol/L (3.5-5.1)
[2021-05-26 01:55] LABS: BUN/CREAT RATIO (CALC) 22.2 RATIO; CREATININE 0.45 mg/dL (0.51-0.95)
[2021-05-26 04:08] LABS: BASOPHIL 0.1 % (0-2); EOSINOPHIL 1.6 % (0-5); HCT 25.3 % (37.0-47.0); HGB 7.4 g/dl (12.5-16.0); MCH 28.8 pg (25.0-31.0); MCHC 29.2 g/dL (32.0-36.0); MCV 98.4 fL (78.0-100.0); MONOCYTE 5.2 % (0-12); MPV 10.9 fL (6.0-9.5); NEUTROPHIL 81.3 % (41-80); NRBC 1.4; PLT 123 K/uL (150-400); RBC 2.57 M/uL (4.20-5.40); WBC 7.9 K/uL (4.0-10.5)
[2021-05-26 04:34] LABS: ALBUMIN 2.2 g/dL (3.4-5.0); BILIRUBIN - TOTAL 0.6 mg/dL (0.2-1.0); BUN/CREAT RATIO (CALC) 20.5 RATIO; CREATININE 0.44 mg/dL (0.51-0.95); GLOBULIN (CALCULATION) 3.7 g/dL; MAGNESIUM 2.1 mg/dL (1.8-2.4); PHOSPHORUS 2.5 mg/dL (2.6-4.7); POTASSIUM 3.2 mmol/L (3.5-5.1); TOTAL PROTEIN 5.9 g/dL (6.4-8.2)
[2021-05-26 04:38] LABS: LACTIC ACID 1.1 mmol/L (0.4-1.9)
[2021-05-26 15:13] LABS: BASOPHIL 0.1 % (0-2); EOSINOPHIL 1.6 % (0-5); HCT 25.3 % (37.0-47.0); HGB 7.2 g/dl (12.5-16.0); LYMPHOCYTE 4.8 % (15-48); MCH 28.8 pg (25.0-31.0); MCHC 28.5 g/dL (32.0-36.0); MCV 101.2 fL (78.0-100.0); MONOCYTE 5.8 % (0-12); MPV 10.8 fL (6.0-9.5); NEUTROPHIL 85.4 % (41-80); NRBC 1.9; PLT 141 K/uL (150-400); RDW 16.1 % (11.5-14.0); WBC 10.3 K/uL (4.0-10.5)
[2021-05-26 15:29] LABS: BUN/CREAT RATIO (CALC) 24.4 RATIO; CREATININE 0.45 mg/dL (0.51-0.95); POTASSIUM 3.7 mmol/L (3.5-5.1)
--- NOTE | 2021-05-26 19:15 | NUR ---
pATIENTS SATS DROPPED TO 60'S AROUND 1130. bAGGED GOT SATS UP TO LOW 80'S. IMMEDIATELY DROPPED TO 60'S AGAIN. HR UP IN 100'S. GRADUALLY STABALIZED DURING DAY. dR Mattson SPOKE TO AND BROTHER ABOUT PATIENT CONDITION. ADVISED THAT PATIENT WAS NOT RESPONSIVE AFTER BEING OFF OF VERSED AND FENTANYL FOR ENTIRE SHIFT.
[2021-05-27 10:50] LABS: BASOPHIL 0.2 % (0-2); EOSINOPHIL 0.2 % (0-5); HCT 33.5 % (37.0-47.0); LYMPHOCYTE 9.6 % (15-48); MCH 29.2 pg (25.0-31.0); MCHC 30.4 g/dL (32.0-36.0); MONOCYTE 6.2 % (0-12); NRBC 7.8; PLT 156 K/uL (150-400); RBC 3.49 M/uL (4.20-5.40); RDW 16.2 % (11.5-14.0)
[2021-05-27 10:52] LABS: HGB 10.2 g/dl (12.5-16.0)
[2021-05-27 12:11] LABS: LACTIC ACID 1.5 mmol/L (0.4-1.9)
[2021-05-27 12:18] LABS: ALKALINE PHOSHATASE 71 U/L (46-116); ALT 293 U/L (14-59); AST 374 U/L (15-37); BUN 23 mg/dL (7-18); BUN/CREAT RATIO (CALC) 34.3 RATIO; C-REACTIVE PROTEIN >18.00 mg/dL (<=0.90); CHLORIDE 102 mmol/L (98-107); CO2 (BICARBONATE) 39 mmol/L (21-32); CREATININE 0.67 mg/dL (0.51-0.95); GLOBULIN (CALCULATION) 3.4 g/dL; GLUCOSE 132 mg/dL (74-106); MAGNESIUM 2.2 mg/dL (1.8-2.4); PHOSPHORUS 3.3 mg/dL (2.6-4.7); POTASSIUM 4.9 mmol/L (3.5-5.1); TOTAL PROTEIN 6.4 g/dL (6.4-8.2)
[2021-05-27 20:45] LABS: BUN/CREAT RATIO (CALC) 38.3 RATIO; CREATININE 0.81 mg/dL (0.51-0.95); POTASSIUM 5.1 mmol/L (3.5-5.1)
[2021-05-28 03:48] LABS: BASOPHIL 0.3 % (0-2); EOSINOPHIL 0.1 % (0-5); HCT 33.4 % (37.0-47.0); HGB 9.7 g/dl (12.5-16.0); LYMPHOCYTE 12.8 % (15-48); MCH 28.3 pg (25.0-31.0); MCV 97.4 fL (78.0-100.0); MONOCYTE 6.4 % (0-12); MPV 11.2 fL (6.0-9.5); NRBC 10.7; PLT 173 K/uL (150-400); RBC 3.43 M/uL (4.20-5.40); RDW 16.3 % (11.5-14.0); WBC 15.8 K/uL (4.0-10.5)
[2021-05-28 04:12] LABS: ALBUMIN 2.7 g/dL (3.4-5.0); BILIRUBIN - TOTAL 0.9 mg/dL (0.2-1.0); BUN/CREAT RATIO (CALC) 34.3 RATIO; CREATININE 1.02 mg/dL (0.51-0.95); GLOBULIN (CALCULATION) 3.1 g/dL; MAGNESIUM 2.2 mg/dL (1.8-2.4); TOTAL PROTEIN 5.8 g/dL (6.4-8.2)
[2021-05-28 08:23] LABS: BUN/CREAT RATIO (CALC) 37.7 RATIO; CREATININE 1.06 mg/dL (0.51-0.95); POTASSIUM 5.2 mmol/L (3.5-5.1)
[2021-05-29 05:08] LABS: BASOPHIL 0.4 % (0-2); EOSINOPHIL 0.1 % (0-5); HCT 34.3 % (37.0-47.0); HGB 10.5 g/dl (12.5-16.0); LYMPHOCYTE 11.2 % (15-48); MCH 29.2 pg (25.0-31.0); MCHC 30.6 g/dL (32.0-36.0); MCV 95.3 fL (78.0-100.0); MONOCYTE 3.8 % (0-12); NEUTROPHIL 80.1 % (41-80); NRBC 11.6; PLT 153 K/uL (150-400); RDW 15.6 % (11.5-14.0)
[2021-05-29 05:09] LABS: WBC 19.7 K/uL (4.0-10.5)
[2021-05-29 05:26] LABS: ALBUMIN 2.8 g/dL (3.4-5.0); BILIRUBIN - TOTAL 0.8 mg/dL (0.2-1.0); BUN/CREAT RATIO (CALC) 40.9 RATIO; CREATININE 1.27 mg/dL (0.51-0.95); GLOBULIN (CALCULATION) 2.8 g/dL; PHOSPHORUS 5.1 mg/dL (2.6-4.7); POTASSIUM 4.8 mmol/L (3.5-5.1); TOTAL PROTEIN 5.6 g/dL (6.4-8.2)
[2021-05-30 04:01] LABS: ALBUMIN 2.5 g/dL (3.4-5.0); BILIRUBIN - TOTAL 0.7 mg/dL (0.2-1.0); BUN/CREAT RATIO (CALC) 42.2 RATIO; CREATININE 1.66 mg/dL (0.51-0.95); POTASSIUM 5.2 mmol/L (3.5-5.1); TOTAL PROTEIN 5.5 g/dL (6.4-8.2)
[2021-05-30 10:03] LABS: BASOPHIL 0.4 % (0-2); EOSINOPHIL 0 % (0-5); HCT 33.7 % (37.0-47.0); LYMPHOCYTE 12.6 % (15-48); MCHC 29.7 g/dL (32.0-36.0); MPV 11.8 fL (6.0-9.5); NEUTROPHIL 72.5 % (41-80); NRBC 25.9; PLT 140 K/uL (150-400); RBC 3.33 M/uL (4.20-5.40); RDW 16.1 % (11.5-14.0); WBC 23.2 K/uL (4.0-10.5)
[2021-05-30 10:38] LABS: ALBUMIN 2.2 g/dL (3.4-5.0); BUN/CREAT RATIO (CALC) 39.8 RATIO; CREATININE 1.86 mg/dL (0.51-0.95); GLOBULIN (CALCULATION) 2.6 g/dL; MAGNESIUM 2.5 mg/dL (1.8-2.4); POTASSIUM 5.9 mmol/L (3.5-5.1); TOTAL PROTEIN 4.8 g/dL (6.4-8.2)
[2021-05-30 10:40] LABS: MCV 101.2 fL (78.0-100.0)
--- NOTE | 2021-05-30 12:11 | NUR ---
0855 CODE STARTED SEE CODE SHEET. 1019 2ND CODE STARTED SEE CODE SHEET 1057 3RD CODE STARTED SEE CODE SHEET
--- NOTE | 2021-05-30 13:21 | NUR ---
0840- PT URIEL BP 41/33 MAP 36, HR 77, RESP 18. ORDERED EPI DRIP AND PHENYPHINE DRIP. PT HAS LEVOPHED MAXED OUT. 0855- CODE CALLED ON PT, SEE CODE SHEET. 1102- PT PRONOUNCED. 1315- PERMISSION FROM FAMILY TO CALL [facility]. FAMILY VISITS PT.
--- NOTE | 2021-05-30 13:55 | NUR ---
PATIENT RELEASED TO [facility].
== END 2021-05-30 13:53 | disposition expired | DRG 870 ==
LOC: FER 11:54 → FICU 18:04
PROVIDERS: Emergency Medicine; Family Medicine; Internal Medicine Nephrology; Nurse Practitioner; ADMIT Internal Medicine
PROC: 8E0ZXY6 Isolation (ICD-10-PCS; principal; 2021-05-02)
PROC: XW033E5 Introduction of Remdesivir Anti-infective into Peripheral Vein, Percutaneous Approach, New Technology Group 5 (ICD-10-PCS; 2021-05-02)
PROC: XW0DXM6 Introduction of Baricitinib into Mouth and Pharynx, External Approach, New Technology Group 6 (ICD-10-PCS; 2021-05-02)
PROC: 5A0935A Assistance with Respiratory Ventilation, Less than 24 Consecutive Hours, High Flow/Velocity Cannula (ICD-10-PCS; 2021-05-02)
PROC: 5A1955Z Respiratory Ventilation, Greater than 96 Consecutive Hours (ICD-10-PCS; 2021-05-03)
PROC: 0BH18EZ Insertion of Endotracheal Airway into Trachea, Via Natural or Artificial Opening Endoscopic (ICD-10-PCS; 2021-05-03)
PROC: 05HM33Z Insertion of Infusion Device into Right Internal Jugular Vein, Percutaneous Approach (ICD-10-PCS; 2021-05-03)
PROC: B543ZZA Ultrasonography of Right Jugular Veins, Guidance (ICD-10-PCS; 2021-05-03)
PROC: 03HY32Z Insertion of Monitoring Device into Upper Artery, Percutaneous Approach (ICD-10-PCS; 2021-05-03)
PROC: 3E043XZ Introduction of Vasopressor into Central Vein, Percutaneous Approach (ICD-10-PCS; 2021-05-03)
PROC: 05HN33Z Insertion of Infusion Device into Left Internal Jugular Vein, Percutaneous Approach (ICD-10-PCS; 2021-05-24)
PROC: B544ZZA Ultrasonography of Left Jugular Veins, Guidance (ICD-10-PCS; 2021-05-24)
PROC: 30243N1 Transfusion of Nonautologous Red Blood Cells into Central Vein, Percutaneous Approach (ICD-10-PCS; 2021-05-27)
PROC: 5A12012 Performance of Cardiac Output, Single, Manual (ICD-10-PCS; 2021-05-30)
DX: A41.89 Other specified sepsis (principal); R65.21 Severe sepsis with septic shock; U07.1 COVID-19; J12.82 Pneumonia due to coronavirus disease 2019; J96.01 Acute respiratory failure with hypoxia; J15.0 Pneumonia due to Klebsiella pneumoniae; J15.8 Pneumonia due to other specified bacteria; N17.0 Acute kidney failure with tubular necrosis; J96.02 Acute respiratory failure with hypercapnia; G93.1 Anoxic brain damage, not elsewhere classified; E87.0 Hyperosmolality and hypernatremia; J95.851 Ventilator associated pneumonia; E87.2 Acidosis; L89.152 Pressure ulcer of sacral region, stage 2; I48.0 Paroxysmal atrial fibrillation; E78.5 Hyperlipidemia, unspecified; K21.9 Gastro-esophageal reflux disease without esophagitis; E87.70 Fluid overload, unspecified; E87.6 Hypokalemia; E86.1 Hypovolemia; J30.9 Allergic rhinitis, unspecified; I46.9 Cardiac arrest, cause unspecified; R73.9 Hyperglycemia, unspecified; D69.6 Thrombocytopenia, unspecified; E87.5 Hyperkalemia; K59.03 Drug induced constipation; E83.39 Other disorders of phosphorus metabolism; D64.9 Anemia, unspecified; I48.91 Unspecified atrial fibrillation; Z78.1 Physical restraint status; Z90.710 Acquired absence of both cervix and uterus; Z90.49 Acquired absence of other specified parts of digestive tract; Z90.89 Acquired absence of other organs; Z79.899 Other long term (current) drug therapy; Z79.890 Hormone replacement therapy; Z98.890 Other specified postprocedural states; Z82.49 Family history of ischemic heart disease and other diseases of the circulatory system; Z80.0 Family history of malignant neoplasm of digestive organs; Z80.3 Family history of malignant neoplasm of breast; Z80.8 Family history of malignant neoplasm of other organs or systems; Z81.1 Family history of alcohol abuse and dependence; Y95 Nosocomial condition
CPT/HCPCS: 36415; 36430; 36600; 71045; 71250; 74018; 80048; 80053; 80202; 81001; 82550; 82607; 82728; 82746; 82803; 82962; 83036; 83540; 83550; 83605; 83615; 83690; 83735; 83880; 83930; 83935; 84100; 84145; 84300; 84484; 85025; 85379; 85610; 85730; 86140; 86850; 86900; 86901; 86922; 87040; 87070; 87077; 87088; 87186; 87205; 92950; 93005; 94002; 94010; 94640; 94667; 94668; C9113; C9399; J0171; J0282; J0360; J0456; J0692; J0743; J1100; J1120; J1250; J1644; J1650; J1940; J2185; J2250; J2370; J2405; J2543; J2597; J2704; J3010; J3370; J3475; J3480; J7030; J7040; J7050; J7060; J7120; P9016; P9046; U0002